=== PATIENT | female | born 1965 ===

== ENCOUNTER 2017-02-13 17:05 | Emergency (ER) | payer BC, OTHER ==
[2017-02-13 17:16] VITALS: BP 141/83; PULSE 98; TEMP 98; O2SAT 100
--- NOTE | 2017-02-13 17:28 | C.PDOC ---
History Of Present Illness [age] year old female presents to the emergency department with a complaint of a lower back pain x3 weeks that started worsening on 02/11/2017. States pain worsens with movement and unable to sleep all night. Reports Ibuprofen did not relieve pain. Reports she visited her primary care doctor yesterday, 2017, and prescribed Naprosyn which make her sick. Denies fall, trauma, urinary symptoms, fever, numbness, weakness, or sciatic anesthesia. Time Seen by Provider: 02/13/17 17:10 Chief Complaint (Nursing): Back Pain History Per: Patient History/Exam Limitations: no limitations Onset/Duration Of Symptoms: Days Past Medical History Reviewed: Historical Data, Nursing Documentation, Vital Signs Vital Signs: Last Vital Signs Temp 98.0 F 02/13/17 17:12 Pulse 98 H 02/13/17 17:12 Resp 20 02/13/17 17:12 BP 141/83 02/13/17 17:12 Pulse Ox 100 02/13/17 17:29 - Medical History PMH: Arthritis, Asthma, HTN - Social History Hx Tobacco Use: No Hx Alcohol Use: No Hx Substance Use: No - Immunization History Hx Tetanus Toxoid Vaccination: No Hx Influenza Vaccination: No Hx Pneumococcal Vaccination: Yes Review Of Systems Except As Marked, All Systems Reviewed And Found Negative. (As per HPI, otherwise negative) Constitutional: Negative for: Fever, Other (fall or trauma) Genitourinary: Negative for: Dysuria, Frequency, Incontinence, Hematuria Musculoskeletal: Positive for: Back Pain (Lower region) Neurological: Negative for: Weakness, Numbness (tingling) Physical Exam - Physical Exam Appears: Well, Non-toxic, Toxic Skin: Normal Color, Warm, Dry Head: Atraumatic, Normacephalic Cardiovascular: Rhythm Regular, No Murmur Respiratory: Normal Breath Sounds, No Decreased Breath Sounds, No Accessory Muscle Use, No Wheezing Back: No Normal Inspection, Paraspinal Tenderness (Left lumbar region ) Extremity: Normal ROM (5/5 strength noted of the legs bilaterally), No Tenderness, No Pedal Edema, Capillary Refill (Senastion and pulses intact. ), No Deformity, No Other (Negative babinski's sign. No clonus. ) Neurological/Psych: Oriented x3 (Alert ) ED Course And Treatment O2 Sat by Pulse Oximetry: 100 (RA) Pulse Ox Interpretation: Normal Disposition Counseled Patient/Family Regarding: Diagnosis, Need For Followup, Rx Given - Disposition Disposition: HOME/ ROUTINE Disposition Time: 17:29 Condition: STABLE Additional Instructions: Please follow up with your doctor in 1 week. Return to the ER for any worsening symptoms, fever, problems with urination, weakness or numbness in your legs, or for any other concerns. Prescriptions: Acetaminophen [Tylenol Extra Strength] 1,000 mg PO Q6H #12 tablet Cyclobenzaprine [Cyclobenzaprine HCl] 10 mg PO TID PRN #20 tab PRN Reason: Pain, Severe (8-10) Lidocaine 5% [Lidoderm] 1 ea TD DAILY PRN #10 patch PRN Reason: back pain Instructions: Back Exercises (ED), Acute Low Back Pain (ED) Forms: Gen Discharge Inst Kyrgyz, [employer] [facility] (Kosovan) Print Language: AMHARIC - Clinical Impression Clinical Impression: Low back pain
[2017-02-13 17:50] VITALS: RESP 16
== END 2017-02-13 17:47 | disposition home or self-care (01) ==
LOC: C.ER 17:05
DX: M54.5 Low back pain (principal)
CPT/HCPCS: 96372; 99284; J1885